=== PATIENT | male | born 1955 | race Caucasian/White ===

== ENCOUNTER 2020-04-10 12:42 | Inpatient (IN) | payer MEDICARE ==
[2020-04-10] MEDS ORDERED: SODIUM CHLORIDE 0.9% 1,000 ML IV STA (14:48)
--- NOTE | 2020-04-10 15:24 | ED ---
General Adult HPI - General Source: patient, RN notes reviewed, old records reviewed Mode of arrival: ambulatory Limitations: no limitations <Bahman Donohue - Last Filed: 04/10/20 17:24> <Kate Escobar - Last Filed: 04/14/20 02:18> - General Chief complaint: Recheck/Abnormal Lab/Rx Stated complaint: kidney problem Time Seen by Provider: 04/10/20 14:09 - History of Present Illness Initial comments: 65-year-old male patient with reportedly no past medical history presents to ED for evaluation of multiple complaints. Patient reports that at approximately 1 month ago he had a physical exam. He states that since then he noticed in the following days that he felt as if there is mucus in his throat and he is having difficulty swallowing. Patient presents onset he was been having difficulty passing nearly any food. He reports that he is still able to pass some liquids but that has been minimal as well. He states that he has been losing weight. He denies any areas of pain anywhere. He denies any symptoms significant with stroke. He states that he has been having a dry cough over that he believes his hand just trying to cough up what he believes is mucus in his throat causing discomfort. Patient follow up with his primary care provider for this a few days ago and had labs drawn. At that time patient was found to be in acute renal failure. Patient was recommended to present hospital. Systemic: Pt denies fatigue, fever/chills, rash. Pt denies weakness, night sweats, weight loss. Neuro: Pt denies headache, visual disturbances, syncope or pre-syncope. HEENT: Pt denies ocular discharge or irritation, otalgia, rhinorrhea, pharyngitis or notable lymphadenopathy. Cardiopulmonary: Pt denies chest pain, SOB, heart palpitations, dyspnea on exertion. Abdominal/GI: Pt denies abdominal pain, n/v/d. : Pt denies dysuria, burning w/ urination, frequency/urgency. Denies new onset urinary or bowel incontinence. MSK: Pt denies myalgia, loss of strength or function in extremities. Neuro: Pt denies new onset weakness, paresthesias. (Bahman Donohue) - Related Data Previous Rx's Medication Instructions Recorded Pantoprazole [Protonix] 40 mg PO AC-BID #60 tablet. 04/13/20 Allergies Allergy/AdvReac Type Severity Reaction Status Date / Time No Known Allergies Allergy Verified 04/10/20 14:47 Review of Systems ROS Other: All systems not noted in ROS Statement are negative. <Bahman Donohue - Last Filed: 04/10/20 17:24> ROS Other: All systems not noted in ROS Statement are negative. <Kate Escobar - Last Filed: 04/14/20 02:18> ROS Statement: Those systems with pertinent positive or pertinent negative responses have been documented in the HPI. Past Medical History Past Medical History: No Reported History History of Any Multi-Drug Resistant Organisms: None Reported Past Surgical History: No Surgical Hx Reported Past Psychological History: No Psychological Hx Reported Smoking Status: Never smoker Past Alcohol Use History: None Reported Past Drug Use History: None Reported <Bahman Donohue - Last Filed: 04/10/20 17:24> - Past Family History Mother Family Medical History: Congestive Heart Failure (CHF), Hypertension <Kate Escobar - Last Filed: 04/14/20 02:18> General Exam Limitations: no limitations <Bahman Donohue - Last Filed: 04/10/20 17:24> - General Exam Comments Initial Comments: Constitutional: NAD, AOX3, Pt has pleasant affect. HEENT: NC/AT, trachea midline, neck supple, no lymphadenopathy. Posterior pharynx non erythematous, without exudates. External ears appear normal, without discharge. Mucous membranes moist. Eyes PERRLA, EOM intact. There is no scleral icterus. No pallor noted. Cardiopulmonary: RRR, no murmurs, rubs or gallops, no JVD noted. Lungs CTAB in anterior and posterior hodges. No peripheral edema. Abdominal exam: Abdomen soft and non-distended. Abdomen non-tender to palpation in all 4 quadrants. Bowel sounds active in LLQ. No hepatosplenomegaly. No ecchymosis Neuro: CN II-XII intact. No nuchal rigidity. No raccon eyes, no osborne sign, no hemotympanum. No cervical spinal tenderness. MSK: No posterior calf tenderness bilaterally, homans sign negative bilaterally. Posterior tibialis and radial pulse +2 bilaterally. Sensation intact in upper and lower extremities. Full active ROM in upper and lower extremities, 5/5 stregnth. (Bahman Donohue) Course Vital Signs 04/10/20 04/10/20 04/10/20 13:24 16:01 19:07 Temperature 97.6 F 96.9 F L Pulse Rate 54 L 79 62 Pulse Rate [ Right] Respiratory 18 18 16 Rate Blood Pressure 114/72 126/58 107/51 Blood Pressure [Right Arm] O2 Sat by Pulse 95 99 100 Oximetry 04/10/20 04/11/20 04/11/20 23:46 05:04 11:00 Temperature 97.2 F L 98.7 F 97.6 F Pulse Rate 71 Pulse Rate [ 64 62 Right] Respiratory 18 19 18 Rate Blood Pressure 133/80 Blood Pressure 110/92 107/71 [Right Arm] O2 Sat by Pulse 100 95 100 Oximetry Medical Decision Making - Lab Data Result diagrams: 04/10/20 15:19 04/10/20 15:19 - EKG Data -: EKG Interpreted by Nd (and Dr. Escobar ) <Bahman Donohue - Last Filed: 04/10/20 17:24> - Lab Data Result diagrams: 04/10/20 15:19 04/13/20 06:30 <Kate Escobar - Last Filed: 04/14/20 02:18> - Medical Decision Making 65-year-old male patient with reportedly no past medical history presents to ED for evaluation of multiple complaints. Patient reports that at approximately 1 month ago he had a physical exam. He states that since then he noticed in the following days that he felt as if there is mucus in his throat and he is having difficulty swallowing. Patient presents onset he was been having difficulty p assing nearly any food. He reports that he is still able to pass some liquids but that has been minimal as well. He states that he has been losing weight. He denies any areas of pain anywhere. He denies any symptoms significant with stroke. He states that he has been having a dry cough over that he believes his hand just trying to cough up what he believes is mucus in his throat causing discomfort. Patient follow up with his primary care provider for this a few days ago and had labs drawn. At that time patient was found to be in acute renal failure. Patient was recommended to present hospital. Patient vital signs are stable, afebrile. Physical exam did not display acute pathology. Patient is neurologically intact. NIH is 0. Laboratory investigations are obtained. This was significant for a elevated BUN of 112, creatinine of 2.92. Calcium was 10.3, phosphorus is 4.8, magnesium is 3.3, bilirubin is mildly elevated. I believe the patient's renal failure is prerenal in nature. CT brain without contrast displayed mild to moderate cerebral atrophy no acute intracranial abnormality. Moderate chronic anterior right ethmoid and right frontal sinus disease. Soft tissue neck was negative for acute process. Chest x-ray displayed COPD, some subtle focal density at the left base could've some early infiltrate. She will be administered 1 dose of azithromycin. Patient adm inistered 2 L of normal saline will be written for further evaluation. Case discussed with Dr. Escobar. (Bahman Donohue) I was available for consultation in the emergency department. The history and physical exam were done by the midlevel provider. I was consulted for this patients care. I reviewed the case with the midlevel provider and based on their presentation of the patient, I agree with the assessment, medical decision making and plan of care as documented. I discussed the case with Dr. Nielson who accepted admission. Chart was dictated using [employer]ik[employer] dictation software. Attempts were made to correct any dictation errors however some typographical errors may persist. Patient was seen during a national state of emergency due to the Covid-19 pandemic. (Kate Escobar) - Lab Data Lab Results 04/10/20 04/10/20 04/10/20 Range/Units 15:19 15:19 15:19 WBC 5.0 (3.8-10.6) k/uL RBC 5.93 H (4.30-5.90) m/uL Hgb 16.5 (13.0-17.5) gm/dL Hct 50.3 (39.0-53.0) % MCV 84.9 (80.0-100.0) fL MCH 27.8 (25.0-35.0) pg MCHC 32.7 (31.0-37.0) g/dL RDW 13.3 (11.5-15.5) % Plt Count 207 (150-450) k/uL Neutrophils % 78 % Lymphocytes % 10 % Monocytes % 8 % Eosinophils % 1 % Basophils % 1 % Neutrophils # 3.9 (1.3-7.7) k/uL Lymphocytes # 0.5 L (1.0-4.8) k/uL Monocytes # 0.4 (0-1.0) k/uL Eosinophils # 0.1 (0-0.7) k/uL Basophils # 0.0 (0-0.2) k/uL Sodium 145 (137-145) mmol/L Potassium 3.9 (3.5-5.1) mmol/L Chloride 98 (98-107) mmol/L Carbon Dioxide 30 (22-30) mmol/L Anion Gap 17 mmol/L BUN 112 H* (9-20) mg/dL Creatinine 2.92 H (0.66-1.25) mg/dL Est GFR (CKD-EPI)AfAm 25 (>60 ml/min/1.73 sqM) Est GFR (CKD-EPI)NonAf 21 (>60 ml/min/1.73 sqM) Glucose 115 H (74-99) mg/dL Calcium 10.3 H (8.4-10.2) mg/dL Phosphorus 4.8 H (2.5-4.5) mg/dL Magnesium 3.3 H (1.6-2.3) mg/dL Total Bilirubin 1.8 H (0.2-1.3) mg/dL AST 29 (17-59) U/L ALT 24 (4-49) U/L Alkaline Phosphatase 63 (38-126) U/L Total Protein 8.4 H (6.3-8.2) g/dL Albumin 5.2 H (3.5-5.0) g/dL Urine Color Dark Yellow Urine Appearance Cloudy (Clear) Urine pH 5.0 (5.0-8.0) Ur Specific [place] 1.023 (1.001-1.035) Urine Protein 1+ H (Negative) Urine Glucose (UA) Negative (Negative) Urine Ketones 1+ H (Negative) Urine Blood Negative (Negative) Urine Nitrite Negative (Negative) Urine Bilirubin 1+ H (Negative) Urine Urobilinogen 4.0 (<2.0) mg/dL Ur Leukocyte Esterase Negative (Negative) Urine RBC 1 (0-5) /hpf Urine WBC 5 (0-5) /hpf Ur Squamous Epith Cells 1 (0-4) /hpf Urine Bacteria Rare H (None) /hpf Cellular Casts 3 (0) /lpf Hyaline Casts 106 H (0-2) /lpf Granular Casts 3 (0) /lpf Urine Mucus Rare H (None) /hpf - EKG Data EKG Comments: Ventricular rate 89, painful 128, QRS 74, QT/QTC 372/452. Normal sinus rhythm, right atrial enlargement, borderline EKG. (Bahman Donohue) Disposition Is patient prescribed a controlled substance at d/c from ED?: No <Bahman Donohue - Last Filed: 04/10/20 17:24> <Kate Escobar - Last Filed: 04/14/20 02:18> Clinical Impression: Acute renal failure, Dysphagia Disposition: ADMITTED IP TO THIS HOSP Condition: Serious
[2020-04-10 15:40] LABS: Appearance,Urine Cloudy (Clear); Bacteria,Urine Rare /hpf; Basophils % (A) 1 %; Bilirubin,Urine 1+ (Negative); Blood,Urine Negative (Negative); Color,Urine Dark Yellow; Eosinophils # (A) 0.1 k/uL (0-0.7); Eosinophils % (A) 1 %; Glucose,Urine (UA) Negative (Negative); HCT 50.3 % (39.0-53.0); HGB 16.5 gm/dL (13.0-17.5); Ketones,Urine 1+ (Negative); Leukocyte Esterase,Urine Negative (Negative); Lymphocytes # (A) 0.5 k/uL (1.0-4.8); Lymphocytes % (A) 10 %; MCH 27.8 pg (25.0-35.0); MCHC 32.7 g/dL (31.0-37.0); MCV 84.9 fL (80.0-100.0); Mean Platelet Volume 8.5; Monocytes # (A) 0.4 k/uL (0-1.0); Monocytes % (A) 8 %; Neutrophils # (A) 3.9 k/uL (1.3-7.7); Neutrophils % (A) 78 %; Nitrite,Urine Negative (Negative); Platelet Count 207 k/uL (150-450); Protein,Urine 1+ (Negative); RBC 5.93 m/uL (4.30-5.90); RBC,Urine 1 /hpf (0-5); RDW 13.3 % (11.5-15.5); Specific Gravity,Urine 1.023 (1.001-1.035); Squamous Epithelial Cell,Urine 1 /hpf (0-4); WBC,Urine 5 /hpf (0-5)
[2020-04-10 15:42] LABS: Cellular Casts,Urine 3 /lpf (0); Granular Casts,Urine 3 /lpf (0); Hyaline Casts,Urine 106 /lpf (0-2); Mucus,Urine Rare /hpf
[2020-04-10 15:52] LABS: Albumin 5.2 g/dL (3.5-5.0); Calcium 10.3 mg/dL (8.4-10.2); Magnesium 3.3 mg/dL (1.6-2.3); Phosphorus 4.8 mg/dL (2.5-4.5); Potassium 3.9 mmol/L (3.5-5.1); Total Bilirubin 1.8 mg/dL (0.2-1.3); Total Protein 8.4 g/dL (6.3-8.2)
--- NOTE | 2020-04-10 15:59 | CT ---
EXAMINATION TYPE: CT brain wo con DATE OF EXAM: 04/10/2020 COMPARISON: None HISTORY: 65-year-old male dysphagia, trouble swallowing, poor historian. TECHNIQUE: Examination was done in axial plane without intravenous contrast. Coronal and sagittal r econstructions performed. CT DLP: 1099.4 mGycm Automated exposure control for dose reduction was used. FINDINGS: There is no evidence of acute intracranial hemorrhage, acute ischemic changes, mass, mass-effect, or extra-axial fluid collection. There is no effacement of cerebral sulci or basal subarachnoid cister ns. There is no hydrocephalus. There is no midline shift. Olivas-white matter distinction is preserv ed. Moderate mucosal thickening anterior right ethmoid air cells and right frontal sinus. Mastoid air rodolfo ls well pneumatized. Orbits and globes appear intact. Mjhe-hj-eagqzikp atrophy along the bilateral cerebral convexities. IMPRESSION: Mild to moderate cerebral atrophy. No acute intracranial abnormality seen. Moderate chronic anterior right ethmoid and right frontal sinus disease.
--- NOTE | 2020-04-10 16:00 | XR ---
EXAMINATION TYPE: XR soft tissue neck DATE OF EXAM: 04/10/2020 COMPARISON: None HISTORY: 65-year-old male difficulty in breathing, shortness of breath, dysphagia TECHNIQUE: AP and lateral views FINDINGS: No abnormal subglottic airway narrowing. Normal shouldering is seen on the frontal view. Normal epigl ottis. No prevertebral soft tissue swelling. No abnormal narrowing of the nasopharyngeal or oropharyn geal airway. IMPRESSION: No evident airway compromise. No prevertebral soft tissue swelling.
--- NOTE | 2020-04-10 16:02 | XR ---
EXAMINATION TYPE: XR chest 2V DATE OF EXAM: 04/10/2020 COMPARISON: None HISTORY: 65-year-old male with cough TECHNIQUE: PA and lateral views FINDINGS: The cardiomediastinal silhouette, aorta, and pulmonary vasculature are within normal limits. Hyperinf lation with increased AP chest dimension. Subtle density at the left base. Unclear if this is superim position shadow/summation artifact. Otherwise, no other consolidation or pleural effusion. IMPRESSION: COPD. Some subtle focal density at the left base could represent an early infiltrate. Follow-up in 4- 6 weeks after any potential treatment to reassess.
[2020-04-10] MEDS ORDERED: SODIUM CHLORIDE 0.9% 1,000 ML IV ONE (16:39)
[2020-04-10] MEDS ORDERED: MAG HYDROX/AL HYDROX/SIMETH 30 ML, HYOSCYAMINE ELIXIR 10 ML, LIDOCAINE VISCOUS 2% 10 ML PO STA ×3 (17:09)
[2020-04-10] MEDS ORDERED: NALOXONE 0.4 MG/ML 1 ML VIAL IV PRN (17:24)
[2020-04-10] MEDS ORDERED: AZITHROMYCIN 500 MG in SODIUM CHLORIDE 0.9% 250 ML IVPB STA (17:27)
--- NOTE | 2020-04-11 08:27 | P.NPCON ---
History of Present Illness - Reason for Consult acute renal failure - History of Present Illness Reason for consultation: Acute kidney injury History of present illness: Patient is a 65-year-old male seen in consultation for acute kidney injury. Unclear as to what his basic renal function is. Patient denies any prior history of kidney disease. Creatinine on admission yesterday was 2.92. Patient presented to the hospital due to poor intake and weight loss. Patient states he's a difficult time swallowing. He feels there is mucus buildup and he's unable to get it out. He denies chest pain or shortness of breath. Patient states he's lost over 20 pounds in the last month. He admits to good urine output. No hematuria or dysuria. Denies vomiting or diarrhea. he denies regular use of nonsteroidals. hemodynamically stable. x-ray of the neck revealed no airway compromise. no acute changes noted on brain CT. he is currently not on any IV fluids. He did receive 2 L of normal saline in the ER yesterday. No abdominal pain. No dizziness or syncopal episodes. No fever or chills. Vital signs are stable. General: The patient appeared well nourished and normally developed. HEENT: Head exam is unremarkable. Neck is without jugular venous distension. LUNGS: Lungs are clear to auscultation and percussion. HEART: Rate and Rhythm are regular. First and second heart sounds normal. No murmurs, rubs or gallops. ABDOMEN: soft, nontender. EXTREMITITES: No clubbing, cyanosis, or edema. Past Medical History Past Medical History: Cancer Additional Past Medical History / Comment(s): skin cancer with removal History of Any Multi-Drug Resistant Organisms: None Reported Past Surgical History: No Surgical Hx Reported Past Anesthesia/Blood Transfusion Reactions: No Reported Reaction Past Psychological History: No Psychological Hx Reported Smoking Status: Never smoker Past Alcohol Use History: None Reported Past Drug Use History: None Reported - Past Family History Mother Family Medical History: Congestive Heart Failure (CHF), Hypertension Medications and Allergies Home Medications Medication Instructions Recorded Confirmed Type No Known Home Medications 04/10/20 04/10/20 History Allergies Allergy/AdvReac Type Severity Reaction Status Date / Time No Known Allergies Allergy Verified 04/10/20 14:47 Physical Exam Vitals: Vital Signs Temp Pulse Pulse Resp BP BP Pulse Ox 04/11/20 05:04 98.7 F 71 19 133/80 95 04/10/20 23:46 97.2 F L 64 18 110/92 100 04/10/20 19:07 62 16 107/51 100 04/10/20 16:01 96.9 F L 79 18 126/58 99 04/10/20 13:24 97.6 F 54 L 18 114/72 95 Intake and Output 04/10/20 04/11/20 04/11/20 22:59 06:59 14:59 Other: # Voids 1 Weight 63.503 kg Results - Lab Results Most recent lab results Calcium 10.3 mg/dL (8.4-10.2) H 04/10/20 15:19 Phosphorus 4.8 mg/dL (2.5-4.5) H 04/10/20 15:19 Magnesium 3.3 mg/dL (1.6-2.3) H 04/10/20 15:19 04/10/20 15:19 04/10/20 15:19 Assessment and Plan Plan: assessment: 1. Acute kidney injury versus chronic kidney disease. Unknown baseline renal function. Possibly prerenal from poor intake. Creatinine 2.92 on admission. He does have proteinuria on UA without any RBCs. Granular and cellular casts noted. Rule out GN. 2. Dysphagia with weight loss. GI consulted. 3. Mild hypercalcemia. Albumin is 5.2. Therefore corrected calcium is in the normal range. 4. Hyperphosphatemia secondary to acute kidney injury. Plan: Start normal saline at 75 mL an hour. Check labs today. Quantify proteinuria and check serologies. Check renal ultrasound. Continue to monitor renal function and urine output. Thank you for the consultation. I will continue to follow the patient with you during his hospital stay.
[2020-04-11] MEDS: SODIUM CHLORIDE 0.9% 1,000 ML IV SCH ×2 (09:34→21:06)
[2020-04-11 10:09] LABS: Albumin 4.6 g/dL (3.5-5.0); Potassium 3.8 mmol/L (3.5-5.1); Total Bilirubin 1.6 mg/dL (0.2-1.3); Total Protein 7.4 g/dL (6.3-8.2)
--- NOTE | 2020-04-11 10:12 | US ---
EXAMINATION TYPE: US kidneys/renal and bladder DATE OF EXAM: 04/11/2020 COMPARISON: NONE CLINICAL HISTORY: dianna. EXAM MEASUREMENTS: Right Kidney: 10.4 x 3.5 x 4.5 cm Left Kidney: 10.2 x 4.8 x 4.9 cm Right Kidney: echogenic foci with twinkle artifact, probable stone measuring 0.4 x 0.5 x 0.2cm Left Kidney: ?mild hydro Bladder: not fully distended When scanning right kidney adjacent liver is heterogeneously hyperechoic suggesting fatty infiltratio n. Possible 4 mm nonobstructing calculus upper pole right kidney. No hydronephrosis. Bladder poorly d istended. Possible bulging prostate. Left kidney shows mild pyelocaliectasis and increased cortical e chogenicity. IMPRESSION: Possible mild left-sided hydronephrosis may further workup with functional study.
--- NOTE | 2020-04-11 11:35 | CT ---
EXAMINATION TYPE: CT ChestAbdPelvis wo con DATE OF EXAM: 04/11/2020 COMPARISON: NONE HISTORY: Pain and abnormal Weight loss CT DLP: 360.4 mGycm. Automated Exposure Control for Dose Reduction was Utilized. TECHNIQUE: CT scan of the thorax, abdomen and pelvis is performed without oral or IV contrast. FINDINGS: LUNGS: The lungs are grossly clear, there is no concerning parenchymal mass or nodule identified. T here is no pleural effusion or pneumothorax seen. The tracheobronchial tree is patent. MEDIASTINUM: There are no definitive abnormal greater than 1 cm hilar or mediastinal lymph nodes. N o cardiomegaly pericardial effusion is seen. OTHER: Small degree of bilateral subareolar gynecomastia.. LIVER/GB: Occasional subcentimeter and roughly 1 cm low dense lesions throughout liver favor thin-wal led cysts. Depended density in gallbladder favors small stones and/or gallbladder sludge. PANCREAS: No significant abnormality is seen. SPLEEN: No significant abnormality is seen. ADRENALS: No significant abnormality is seen. KIDNEYS: Elongated single 5-6 mm calculus right kidney lower pole level image 51. BOWEL: Suboptimal evaluation without enteric contrast. No suspicious small or large bowel dilatation. Low-lying cecum into the right pelvis. Mild diffuse colonic fecal prominence. GENITAL ORGANS: Upper limits of normal size with some central calcifications. Occasional scattered pe lvic phleboliths. LYMPH NODES: No greater than 1cm abdominal or pelvic lymph nodes are appreciated. OSSEOUS STRUCTURES: Slight S-shaped scoliosis OTHER: No significant additional abnormality is seen. IMPRESSION: No obvious mass or adenopathy to suggest neoplasm on noncontrast study.
[2020-04-11] MEDS: PANTOPRAZOLE 40 MG/10 ML VIAL IVP SCH ×2 (14:04→20:28)
[2020-04-11 16:30] LABS: Appearance,Urine Clear (Clear); Bilirubin,Urine Negative (Negative); Blood,Urine Negative (Negative); Color,Urine Yellow; Glucose,Urine (UA) Negative (Negative); Ketones,Urine 2+ (Negative); Leukocyte Esterase,Urine Negative (Negative); Nitrite,Urine Negative (Negative); Protein,Urine Trace (Negative); Specific Gravity,Urine 1.021 (1.001-1.035)
[2020-04-11 16:41] LABS: Creatinine,Urine Random 131.6 mg/dL
[2020-04-11 18:07] LABS: Protein, Total 6.9 g/dL (6.2-8.2)
[2020-04-11 18:10] LABS: Hepatitis A Antibody IgM Non-Reactive (Non-Reactive); Hepatitis B Core IgM Non-Reactive (Non-Reactive); Hepatitis B Surface Antigen Non-Reactive (Non-Reactive); Hepatitis C IgG Antibody Non-Reactive (Non-Reactive)
--- NOTE | 2020-04-11 22:19 | HP ---
HISTORY AND PHYSICAL CHIEF COMPLAINT: Abnormal weight loss, malnutrition, general weakness and debility, difficulty swallowing and renal failure. HISTORY OF PRESENT ILLNESS: This is the first known admission for this 65-year-old white male. He has been in fairly good health and he has not been taking any medications. He came into the office a week or two ago with a significant weight loss of about 40 pounds in the last few months. He is a very poor historian. He is quite anxious. He described difficulty swallowing. It sounded as though this problem was episodic. He had no other symptoms, including nausea, vomiting, hematemesis, melena, hematochezia, jaundice, etc. He was started on evaluation and his blood work revealed that he was in acute renal failure. Determination was made that he should be in the hospital, undergo an urgent and thorough workup, both for his renal failure and dysphagia. REVIEW OF SYSTEMS: He has had no neurologic problems, no psychiatric issues, change in the vision or the hearing, cough, hemoptysis, shortness of breath, chest pain, heart disease, hypertension, murmurs, rheumatic fever, orthopnea, PND, abdominal pain, jaundice, renal failure, dysuria, frequency, urgency, nocturia, urinary tract infections, etc. There is no history of diabetes or symptoms thereof. Past medical history, family history, and personal and social histories reveal he has NO ALLERGIES. The only medication he has been on was a hydrocortisone cream for a rash. He does not smoke or drink. PHYSICAL EXAMINATION: BMI is 15.5 with a height of 5 feet 9-3/4 inches and a weight of 107 pounds. Respirations are 18, pulse 72, blood pressure 140/70. In general he appeared to be very poorly nourished. He was pale. Head, ears, eyes, nose, mouth and throat were normal. Neck veins were not distended. Chest is clear to auscultation. Cardiac exam demonstrates sinus rhythm and no murmurs or extra sounds. The abdomen is scaphoid, soft and nontender without any visceromegaly or masses. Bowel sounds are present. Extremities are normal. Neurologically he is intact. He is admitted to the hospital with the diagnoses: 1. Dysphagia. 2. Renal failure. 3. Abnormal weight loss. 4. Cachexia. 5. Anxiety. PLAN: 1. Bed rest. 2. IV fluids. 3. Nephrology consult. 4. GI consult. MMODL / IJN: [id number] /
--- NOTE | 2020-04-11 22:51 | PN ---
PROGRESS NOTE CHIEF COMPLAINT: Abnormal weight loss, renal failure, dysphagia and cachexia. HISTORY OF PRESENT ILLNESS: This gentleman has been stable overnight and studies will be started today. He still is complaining of a feeling of being unable to swallow in his throat. PHYSICAL EXAMINATION: Lymph nodes are not enlarged. Chest is clear. Cardiac exam is normal. Abdomen is soft, nontender. IMPRESSION: 1. Dysphagia. 2. Renal failure. 3. Cachexia. PLAN: Start workup today. He will be seen by GI and Nephrology. MMODL / IJN: [id number] /
--- NOTE | 2020-04-12 06:00 | P.CONS ---
History of Present Illness - Reason for Consult Consult date: 04/11/20 Esophageal dysphagia Requesting physician: Kali Nielson - Chief Complaint Difficulty swallowing - History of Present Illness 65-year-old male presenting to the hospital for evaluation of decreased oral intake, dehydration and esophageal dysphagia. The patient reports that he has had increasing esophageal dysphagia over the past month. Initially the patient had difficulty swallowing solids however this has progressed to liquids as well. The patient reports difficulty getting the food and liquid down into his stomach and episodes of regurgitation. The patient has had a loss over the past year reporting 8 pounds of weight loss in evaluation with his primary care physician 1 month ago. Since that time he has had an additional 20 pounds of weight loss. He denies any history of alcohol or tobacco abuse. No family history of esophageal cancer. No prior upper endoscopy reported. On presentation laboratory evaluation significant for WBC 5, hemoglobin 16.5, platelet count 207,000, total bilirubin 1.6, alkaline phosphatase 51, AST 32 and ALT 30. Review of Systems REVIEW OF SYSTEMS: CONSTITUTIONAL: Denies any fevers, chills, fatigue, but close to a 30 pound weight loss over the past year, with 20 pounds lost over the past month. CARDIOVASCULAR: Denies any chest pain, palpitations high or low blood pressures RESPIRATORY: Denies any shortness of breath, hemoptysis or cough. GENITOURINARY: No dysuria or hematuria. MUSCULOSKELETAL: No weakness reported. SKIN: Denies any new rashes or lesions, jaundice or pallor. PSYCHIATRIC: Denies any depression or anxiety. NEUROLOGY: Denies headache, denies any new focal deficits. EARS/NOSE/THROAT: No recent hearing change, congestion, nasal discharge or sore throat. EYES: No pain in eyes, discharge or change in vision. GASTROINTESTINAL: As per HPI. Past Medical History Past Medical History: Cancer Additional Past Medical History / Comment(s): skin cancer with removal History of Any Multi-Drug Resistant Organisms: None Reported Past Surgical History: No Surgical Hx Reported Past Anesthesia/Blood Transfusion Reactions: No Reported Reaction Past Psychological History: No Psychological Hx Reported Smoking Status: Never smoker Past Alcohol Use History: None Reported Past Drug Use History: None Reported - Past Family History Mother Family Medical History: Congestive Heart Failure (CHF), Hypertension Medications and Allergies Home Medications Medication Instructions Recorded Confirmed Type No Known Home Medications 04/10/20 04/10/20 History Allergies Allergy/AdvReac Type Severity Reaction Status Date / Time No Known Allergies Allergy Verified 04/10/20 14:47 Physical Exam Vitals: Vital Signs Temp Pulse Pulse Resp BP BP Pulse Ox 04/11/20 11:00 97.6 F 62 18 107/71 100 04/11/20 05:04 98.7 F 71 19 133/80 95 04/10/20 23:46 97.2 F L 64 18 110/92 100 04/10/20 19:07 62 16 107/51 100 04/10/20 16:01 96.9 F L 79 18 126/58 99 04/10/20 13:24 97.6 F 54 L 18 114/72 95 Intake and Output 04/10/20 04/11/20 04/11/20 22:59 06:59 14:59 Intake Total 200 Balance 200 Intake: Oral 200 Other: # Voids 1 Weight 63.503 kg On physical examination, patient appears comfortable in no apparent distress. HEAD: Normocephalic, atraumatic. EYES: No scleral icterus. No conjunctival injection. MOUTH: No lesions, tongue midline. NECK: Trachea midline, no gross abnormalities. CHEST: Clear to auscultation with no wheezing or rhonchi appreciated. HEART: Regular rate and rhythm. ABDOMEN: Soft, thin. Bowel sounds are positive. No organomegaly. No guarding or rigidity. EXTREMITIES: No pedal edema. SKIN: No rashes, no jaundice. NEUROLOGIC: Alert and oriented x3. No focal deficits. Results CBC & Chem 7: 04/10/20 15:19 04/11/20 08:33 Labs: Abnormal Lab Results - Last 24 Hours (Table) 04/10/20 04/10/20 04/10/20 Range/Units 15:19 15:19 15:19 RBC 5.93 H (4.30-5.90) m/uL Lymphocytes # 0.5 L (1.0-4.8) k/uL Sodium (137-145) mmol/L Carbon Dioxide (22-30) mmol/L BUN 112 H* (9-20) mg/dL Creatinine 2.92 H (0.66-1.25) mg/dL Glucose 115 H (74-99) mg/dL Calcium 10.3 H (8.4-10.2) mg/dL Phosphorus 4.8 H (2.5-4.5) mg/dL Magnesium 3.3 H (1.6-2.3) mg/dL Total Bilirubin 1.8 H (0.2-1.3) mg/dL Total Protein 8.4 H (6.3-8.2) g/dL Albumin 5.2 H (3.5-5.0) g/dL Urine Protein 1+ H (Negative) Urine Ketones 1+ H (Negative) Urine Bilirubin 1+ H (Negative) Urine Bacteria Rare H (None) /hpf Hyaline Casts 106 H (0-2) /lpf Urine Mucus Rare H (None) /hpf 04/11/20 Range/Units 08:33 RBC (4.30-5.90) m/uL Lymphocytes # (1.0-4.8) k/uL Sodium 151 H (137-145) mmol/L Carbon Dioxide 32 H (22-30) mmol/L BUN 81 H (9-20) mg/dL Creatinine 1.67 H (0.66-1.25) mg/dL Glucose (74-99) mg/dL Calcium (8.4-10.2) mg/dL Phosphorus (2.5-4.5) mg/dL Magnesium 3.0 H (1.6-2.3) mg/dL Total Bilirubin 1.6 H (0.2-1.3) mg/dL Total Protein (6.3-8.2) g/dL Albumin (3.5-5.0) g/dL Urine Protein (Negative) Urine Ketones (Negative) Urine Bilirubin (Negative) Urine Bacteria (None) /hpf Hyaline Casts (0-2) /lpf Urine Mucus (None) /hpf CT scan - abdomen: report reviewed (No obvious mass or adenopathy on computed tomography scan of chest, abdomen and pelvis.) Assessment and Plan (1) Dysphagia Narrative/Plan: 65-year-old male presenting to the hospital with progressive esophageal dysphagia. This is been occurring over approximately the last month with progressive symptoms of difficulty swallowing initially solids and now liquids. Patient has associated weight loss of 20 pounds over the last month and almost 30 pounds over the last year. Denies any history of alcohol abuse, tobacco abuse or family history of esophageal cancer. Computed tomography scan of the chest/abdomen/pelvis negative for any adenopathy or mass noted. Unclear etiology with differential including stricturing disease, esophageal cancer, motility disorder of the esophagus or other etiology. Current Visit: Yes Status: Acute Code(s): R13.10 - DYSPHAGIA, UNSPECIFIED SNOMED Code(s): 25783600 (2) Acute renal failure Current Visit: Yes Status: Acute Code(s): N17.9 - ACUTE KIDNEY FAILURE, UNSPECIFIED SNOMED Code(s): 22293631 Plan: Supportive care Nothing by mouth Plan for EGD tomorrow for further evaluation Computed tomography scan reviewed Further recommendations pending findings of EGD Thank you for allowing us to participate in the care of the patient we will continue to follow
[2020-04-12 06:14] VITALS: RESP 18
[2020-04-12 08:13] LABS: Calcium 8.8 mg/dL (8.4-10.2); Magnesium 2.3 mg/dL (1.6-2.3); Potassium 3.4 mmol/L (3.5-5.1)
[2020-04-12] MEDS: PANTOPRAZOLE 40 MG/10 ML VIAL IVP SCH ×2 (08:36→20:19)
[2020-04-12] MEDS ORDERED: POTASSIUM CHLORIDE ER 20 MEQ TAB.ER PO STA (09:02)
--- NOTE | 2020-04-12 09:03 | P.PN ---
Subjective Patient is seen in follow for acute kidney injury. Creatinine was 2.9 at admission and is down to 1.22 today. However her sodium level is elevated and is 150 this morning. He denies chest pain or shortness of breath. No edema. Scheduled for EGD today. Vital signs are stable. General: The patient appeared well nourished and normally developed. HEENT: Head exam is unremarkable. Neck is without jugular venous distension. LUNGS: Lungs are clear to auscultation and percussion. Breath sounds decreased. HEART: Rate and Rhythm are regular. ABDOMEN: soft, nontender. EXTREMITITES: No clubbing, cyanosis, or edema. Objective - Vital Signs Vital signs: Vital Signs Temp 97.6 F 04/12/20 05:00 Pulse 71 04/12/20 05:00 Resp 18 04/12/20 05:00 BP 100/60 04/12/20 05:00 Pulse Ox 97 04/12/20 05:00 Intake & Output 04/11/20 04/12/20 04/12/20 18:59 06:59 18:59 Intake Total 375 900 Balance 375 900 Intake: Intake, IV Titration 75 600 Amount Sodium Chloride 0.9% 1, 75 600 000 ml @ 75 mls/hr IV . [id number] [facility] Rx#:[id number] Oral 300 300 Other: Voiding Method Toilet # Voids 1 - Labs CBC & Chem 7: 04/10/20 15:19 04/12/20 07:51 Labs: Abnormal Lab Results - Last 24 Hours (Table) 04/11/20 04/11/20 04/11/20 Range/Units 08:33 16:20 16:20 Sodium 151 H (137-145) mmol/L Potassium (3.5-5.1) mmol/L Chloride (98-107) mmol/L Carbon Dioxide 32 H (22-30) mmol/L BUN 81 H (9-20) mg/dL Creatinine 1.67 H (0.66-1.25) mg/dL Glucose (74-99) mg/dL Magnesium 3.0 H (1.6-2.3) mg/dL Total Bilirubin 1.6 H (0.2-1.3) mg/dL Urine Protein Trace H (Negative) Urine Ketones 2+ H (Negative) U Random Total Protein 15 H (<12) mg/dL 04/12/20 Range/Units 07:51 Sodium 150 H (137-145) mmol/L Potassium 3.4 L (3.5-5.1) mmol/L Chloride 112 H (98-107) mmol/L Carbon Dioxide (22-30) mmol/L BUN 48 H (9-20) mg/dL Creatinine (0.66-1.25) mg/dL Glucose 72 L (74-99) mg/dL Magnesium (1.6-2.3) mg/dL Total Bilirubin (0.2-1.3) mg/dL Urine Protein (Negative) Urine Ketones (Negative) U Random Total Protein (<12) mg/dL Assessment and Plan Plan: assessment: 1. Acute kidney injury mostly prerenal due to poor oral intake. Creatinine 2.92 on admission and is down to 1.22 today. He does have proteinuria on UA without any RBCs. Granular and cellular casts noted. UPC 0.1. Serologies negative so far. no evidence of hydronephrosis noted on kidney ultrasound. 2. Dysphagia with weight loss. scheduled for EGD today. 3. Mild hypercalcemia. Albumin is 5.2. Therefore corrected calcium in the normal range. Better today. 4. Hyperphosphatemia secondary to acute kidney injury. Expect improvement with improved renal function. 5. Hypernatremia secondary to lack of oral water intake. 6. Hypokalemia from poor oral intake. Magnesium normal. Plan: Discontinue normal saline. Start D5W at 75 mL an hour. Replace potassium. 40 mEq today. Continue to monitor renal function and urine output. Follow-up serologies.
[2020-04-12] MEDS: DEXTROSE 5% IN WATER 1,000 ML IV SCH (10:00)
[2020-04-12 11:49] LABS: Complement C3 88.4 mg/dL (80.0-207.0)
[2020-04-12] MEDS ORDERED: PROPOFOL 10 MG/ML 20 ML VIAL IV ONE (12:16)
[2020-04-12] MEDS ORDERED: LIDOCAINE 1% INJ 10MG/ML (20 ML MDV) ONE (12:16)
[2020-04-12] MEDS ORDERED: IV FLUID CONTINUATION 1,000 ML IV ONE (12:19)
--- NOTE | 2020-04-12 12:29 | P.PCN ---
Date of Procedure: 04/12/20 Procedure(s) Performed: BRIEF HISTORY: Patient is a 65-year-old, pleasant, white male admitted hospital with progressive dysphagia to solids for the last 1 month duration and weight loss of 30 pounds. Hence scheduled for an upper endoscopy to evaluate. PROCEDURE PERFORMED: Esophagoscopy with dilation. PREOPERATIVE DIAGNOSIS: Progressive dysphagia to solids and weight loss of 6 months duration. IV sedation per anesthesia. PROCEDURE: After informed consent was obtained, the patient was brought into the endoscopy unit. IV sedation was administered by Anesthesia under continuous monitoring. Initially the Olympus GIF-140 video endoscope was inserted into the mouth. Esophagus intubated without any difficulty. It was gradually advanced into the distal esophagus and there was a tight benign appearing stricture noted at 28 cm from the incisors. The luminal diameter of the stricture was about 3-5 mm. I disseminated proceeded with balloon dilation as a family advanced to the stricture. This was dilated with 18 mm for 20 seconds and then to 19 mm for 20 was seconds. At this time there was brisk oozing identified at the site of dilation and hence further dilation was not performed. After the dilation was still one not able to advance the scope into the stomach. The esophagus appeared slightly dilated proximal to the stricture. The rest of the esophagus appeared normal. There were no erosions or ulcerations seen and the patient tolerated the procedure well. IMPRESSION: 1. Tight distal esophageal stricture status post balloon dilation using 8 and 9 mm TTS balloon as described above. 2. Scope could not be advanced through the stricture into the stomach. RECOMMENDATIONS: The findings of this examination were discussed with the patient . He'll be started on a clear liquid diet today and advance as tolerated tomorrow.. He needs to have a repeat upper endoscopy with dilation in one to 2 weeks.
--- NOTE | 2020-04-12 12:50 | PN ---
PROGRESS NOTE DATE OF SERVICE: 04/12/2020. CHIEF COMPLAINT: Intermittent dysphagia and abdominal pain with renal failure, weight loss. HISTORY OF PRESENT ILLNESS: This gentleman is feeling fairly well but is going down for endoscopy today. He states that sometimes he can swallow and other times he cannot. Renal function is improving and was probably related to dehydration or prerenal azotemia. PHYSICAL EXAMINATION: Seems awake and alert. He remains slightly pale. Nutrition is poor. Chest is clear. Cardiac exam is normal. Abdomen is flat, soft, nontender. IMPRESSION: 1. Dysphagia. 2. Renal failure. 3. Malnutrition. PLAN: Await results of endoscopy as well as the CT scan. MMODL / IJN: [id number] /
[2020-04-12 13:05] LABS: Gamma Globulin 1.11 g/dL (0.70-1.50)
[2020-04-12 14:41] LABS: C-ANCA <1:20 Titer (<1:20)
[2020-04-13] MEDS: DEXTROSE 5% IN WATER 1,000 ML IV SCH ×2 (03:43→08:24)
[2020-04-13 07:30] LABS: Calcium 8.2 mg/dL (8.4-10.2); Magnesium 1.6 mg/dL (1.6-2.3); Potassium 3.6 mmol/L (3.5-5.1)
[2020-04-13 07:34] VITALS: BP 93/44; PULSE 55; TEMP 98.2
[2020-04-13] MEDS ORDERED: POTASSIUM CHLORIDE ER 20 MEQ TAB.ER PO STA (08:19)
[2020-04-13] MEDS ORDERED: LACTATED RINGERS 1,000 ML IV SCH (08:19)
[2020-04-13] MEDS ORDERED: LIDOCAINE 1% (10MG/ML) FOR IV START INTRADERMA PRN (08:19)
[2020-04-13] MEDS: PANTOPRAZOLE 40 MG/10 ML VIAL IVP SCH (08:24)
[2020-04-13] MEDS ORDERED: Phosphorus Replacement Protoco 1 EACH MISC MISCELLANE PRN (09:09)
--- NOTE | 2020-04-13 09:10 | P.PN ---
Subjective Patient is seen in follow for acute kidney injury. Creatinine was 2.9 at admission and is down to 1.05 today. Sodium level is better. Underwent es ophagoscopy with dilation on April 12. Oral intake improving. Vital signs are stable. General: The patient appeared well nourished and normally developed. HEENT: Head exam is unremarkable. Neck is without jugular venous distension. LUNGS: Lungs are clear to auscultation and percussion. Breath sounds decreased. HEART: Rate and Rhythm are regular. ABDOMEN: soft, nontender. EXTREMITITES: No clubbing, cyanosis, or edema. Objective - Vital Signs Vital signs: Vital Signs Temp 98.2 F 04/13/20 05:00 Pulse 55 L 04/13/20 05:00 Resp 18 04/13/20 05:00 BP 93/44 04/13/20 05:00 Pulse Ox 98 04/13/20 05:00 Intake & Output 04/12/20 04/13/20 04/13/20 18:59 06:59 18:59 Intake Total 450 Balance 450 Intake: IV 50 Oral 400 Other: Voiding Method Toilet Toilet # Voids 2 1 - Labs CBC & Chem 7: 04/10/20 15:19 04/13/20 06:30 Labs: Abnormal Lab Results - Last 24 Hours (Table) 04/13/20 Range/Units 06:30 Carbon Dioxide 32 H (22-30) mmol/L BUN 27 H (9-20) mg/dL Calcium 8.2 L (8.4-10.2) mg/dL Phosphorus 2.0 L (2.5-4.5) mg/dL Assessment and Plan Plan: assessment: 1. Acute kidney injury mostly prerenal due to poor oral intake. Creatinine 2.92 on admission and is down to 1.05 today. He did have proteinuria on UA without any RBCs. UPC 0.1. Serologies negative. No evidence of hydronephrosis noted on kidney ultrasound. 2. Dysphagia with weight loss. Status post esophagoscopy with dilation in April 12. 3. Mild hypercalcemia. Albumin is 5.2. Therefore corrected calcium in the normal range. resolved. 4. Hyperphosphatemia secondary to acute kidney injury. Resolved. Phosphorus on the lower side today. 5. Hypernatremia secondary to lack of oral water intake. Resolved. 6. Hypokalemia from poor oral intake. Magnesium normal. Plan: Stop D5W. Start normal saline at 50 mL an hour. Potassium was replaced. Replace phosphorus per protocol. Continue to monitor renal function and urine output.
[2020-04-13] MEDS ORDERED: SODIUM CHLORIDE 0.9% 1,000 ML IV SCH (09:15)
[2020-04-13] MEDS ORDERED: POTASSIUM PHOSPHATE 10 MMOL in SODIUM CHLORIDE 0.9% 250 ML IV SCH (13:00)
[2020-04-13] MEDS ORDERED: POTAS-SOD-PHOS 278-164-250 MG 1 EACH PACKET PO STA (13:27)
--- NOTE | 2020-04-13 13:50 | PN ---
PROGRESS NOTE DATE OF SERVICE: 04/13/2020 The patient is a 65-year-old white male admitted to hospital with severe progressive dysphagia and weight loss of several months duration. He had an upper endoscopy done yesterday that showed a benign tight distal esophageal stricture with a luminal diameter of 5 mm in diameter. He underwent dilation yesterday. He is on a clear liquid diet, tolerating well. He denies any symptoms. EXAMINATION: Appears comfortable. Vital signs are stable. Blood pressure is 106/44, pulse 55, temperature 98.2. HEENT examination unremarkable. Conjunctivae pink, sclerae anicteric. Oral cavity no lesions. NECK: No JVD or lymph node enlargement. CHEST was clear auscultation. HEART: Regular rate and rhythm. ABDOMEN: Soft. Bowel sounds are positive. No organomegaly. EXTREMITIES: No pedal edema. SKIN: No rashes. NEUROLOGIC: Alert and oriented x3. No focal deficits. LABS: No CBC done, but BUN and creatinine are down to 27 and 1.05 respectively. IMPRESSION: 1. Severe progressive dysphagia secondary to tight distal esophageal benign appearing stricture status post EGD with dilation yesterday, on a clear liquid diet, tolerating well. Most likely the etiology of the stricture is related to gastroesophageal reflux disease. 2. Progressive weight loss. 3. Acute kidney injury secondary to decreased oral intake which is improving. RECOMMENDATION: 1. Advance to soft diet today. 2. Protonix 40 mg daily. 3. Repeat upper endoscopy with dilation in 2 weeks from now. I had a lengthy discussion with the patient regarding management of benign tight distal esophageal stricture for which he may need periodic dilations in the near future. He will be seen in the office in 2 weeks. Thank you for this consultation. MMODL / IJN: [id number] /
[2020-04-13] MEDS ORDERED: PANTOPRAZOLE 40 MG TABLET PO SCH (17:30)
--- NOTE | 2020-04-14 00:20 | DS ---
DISCHARGE SUMMARY CHIEF COMPLAINT: Dysphagia, malnutrition, anorexia, and renal failure. HISTORY OF PRESENT ILLNESS AND PHYSICAL EXAM: Details of this man's history and physical can be found in the initial workup. LABORATORY STUDIES: While he was in the hospital, he had laboratory studies, details of which can be found laboratory section of his chart. COURSE IN THE HOSPITAL: After admission, he was placed on bedrest, started on intravenous fluids and began on workup. When he was rehydrated, his renal function returned to near normal. He was taken for endoscopy where he was found to have a significant stricture in the distal esophagus. This was dilated. After that, he could swallow much more easily. He was doing well and it was felt he could go home on the and he will go home on Protonix 40 mg twice a day. He will follow up in the office in a few days. He will also go back to Gastroenterology in 2 weeks for another dilatation. FINAL DIAGNOSES: 1. Distal esophageal stenosis. 2. Malnutrition. 3. Dehydration. 4. Prerenal azotemia. OPERATIONS: Upper GI endoscopy and dilatation of the esophagus. CONSULTATION: Gastroenterology. Nephrology. He is improved. MMODL / IJN: [id number] /
--- NOTE | 2020-04-16 09:23 | CDI ---
Documentation Clarification Form Date: 04/16/2020 08:06:00 AM From: Daja Barber Phone: If you have a question about this query, please contact Justyna Bran Complaint Manager at [phone] between 8am and 5pm Admit Date: 04/10/2020 05:25:00 PM Patient Name: David Beltran Visit Number: [id number] Discharge Date: 04/13/2020 04:37:00 PM TTENTION: The Clinical Documentation Specialists (CDI) and [facility] Coding Staff appreciate your assistance in clarifying documentation. Please respond to the clarification below the line at the bottom and electronically sign. The CDI & [facility] Coding staff will review the response and follow-up if needed. Please note: Queries are made part of the Legal Health Record. If you have any questions, please contact the author of this message via ITS. Dr. Kali Nielson Malnutrition has been documented throughout the chart and not specified to severity. Patient has lost 20 lbs over the last month and 30 lbs over the last year due to decreased oral intake from dysphagia caused from esophageal stenosis. Please clarify the severity of patient's malnurtiion. History/Risk Factors: esophageal stricture. 20 lb weight loss in las month Clinical Indicators: Labs: BUN 112 Creat. 2.92 from dehydration Current BMI: 20.7 Weight Loss: 20 lbs last month 30 lbs. last year Treatment: dilate distal esophagus via EGD Weight and meals monitored. I and O's In your professional opinion, can you please clarify if these findings signify one of the following conditions? Mild Protein-Calorie Malnutrition ?Moderate Protein-Calorie Malnutrition ?Severe Protein-Calorie Malnutrition ?Malnutrition, unspecified ?Malnutrition following GI surgery ?Other condition, please specify ?Unable to determine MTDD
--- NOTE | 2020-04-16 15:04 | MISC ---
MISCELLANOUS REPORT QUERY RESPONSE: Severe protein calorie malnutrition. MMODL / IJN: [id number] /
== END 2020-04-13 16:37 | disposition home or self-care (01) | DRG 682 ==
LOC: EC 12:42 → 4SSUR 17:25 → 5NMEDONC 04-11 12:42
PROVIDERS: ADMIT Family Medicine; ATTEND Family Medicine
PROC: 0D738ZZ Dilation of Lower Esophagus, Via Natural or Artificial Opening Endoscopic (ICD-10-PCS; principal; 2020-04-12 13:35)
DX: N17.9 Acute kidney failure, unspecified (principal); E43 Unspecified severe protein-calorie malnutrition; E87.0 Hyperosmolality and hypernatremia; K22.2 Esophageal obstruction; E83.39 Other disorders of phosphorus metabolism; E83.52 Hypercalcemia; E86.0 Dehydration; Z68.20 Body mass index [BMI] 20.0-20.9, adult; R63.4 Abnormal weight loss; E87.6 Hypokalemia; J44.9 Chronic obstructive pulmonary disease, unspecified; K21.9 Gastro-esophageal reflux disease without esophagitis; R13.14 Dysphagia, pharyngoesophageal phase; Z82.49 Family history of ischemic heart disease and other diseases of the circulatory system; Z85.828 Personal history of other malignant neoplasm of skin; Z11.59 Encounter for screening for other viral diseases
CPT/HCPCS: 36415; 43249; 70360; 70450; 71046; 71250; 74176; 76770; 80048; 80053; 80074; 81001; 81003; 82570; 83735; 84100; 84156; 84165; 85025; 86038; 86160; 86162; 86255; 86334; 86335; 93005; 96361; 96365; 96366; 96375; 99285

== ENCOUNTER 2023-06-12 17:51 | Emergency (ER) | payer MEDICARE ==
[2023-06-12 18:05] VITALS: RESP 16
[2023-06-12] MEDS ORDERED: HYDROmorphone 0.5 MG/0.5 ML SYRINGE IM STA (18:17)
[2023-06-12] MEDS ORDERED: MORPHINE SULFATE 4 MG/ML SYRINGE IM STA (18:18)
--- NOTE | 2023-06-12 19:25 | CT ---
EXAMINATION TYPE: CT brain cspine wo con DATE OF EXAM: 06/12/2023 COMPARISON: Brain 04/10/2020 HISTORY: 68-year-old male pain after fall on face, abrasions to nose CT DLP: combined 1170.4 mGycm Automated exposure control for dose reduction was used. Technique: Examination of the head was done in axial plane without intravenous contrast. Coronal and sagittal reconstructions performed. CT of the cervical spine was obtained in axial plane without intravenous injection of contrast mater ial. Coronal and sagittal reformatted images were obtained from the axial views for evaluation of f ractures, spinal alignment and canal. FINDINGS: Head: There is no evidence of acute intracranial hemorrhage, acute ischemic changes, mass, mass-effect, or extra-axial fluid collection. There is no effacement of cerebral sulci or basal subarachnoid cister ns. There is no hydrocephalus. There is no midline shift. Olivas-white matter distinction is preserv ed. Mild cerebral cortical volume loss. No calvarial fracture. Mastoid air cells are well pneumatized. Facial bones reported separately. Cervical spine: No craniocervical junction abnormality, predental space widening, or prevertebral soft tissue swellin g. Degenerative change of the C1 dens articulation. Moderate degenerative disc disease C6-C7 with disc space narrowing and disc osteophyte complex mildly narrowing the spinal canal. No acute fracture of the cervical spine. Scattered facet and uncovertebral joint arthropathy. Alignment is maintained. There is moderate right neuroforaminal stenosis at C6-C7. Mild elsewhere throughout the cervical spin e. Mild biapical pleural-parenchymal scarring. Sagittal and coronal reformatted images confirm above findings. COMBINED IMPRESSION: 1. No acute intracranial abnormality seen. 2. No acute fracture or malalignment of the cervical spine. Mild to moderate spondylotic change as ou tlined above. 3. Facial bones reported separately.
--- NOTE | 2023-06-12 19:28 | CT ---
EXAMINATION TYPE: CT facial bones wo con DATE OF EXAM: 06/12/2023 COMPARISON: Prior CT brain 04/10/2020 HISTORY: 68-year-old male pain after fall on face, abrasions to nose TECHNIQUE: Contiguous axial scanning of the facial bones without IV contrast. Coronal and sagittal re constructions performed. CT DLP: combined 1170.4 mGycm Automated exposure control for dose reduction was used. FINDINGS: The mandible and TMJs remain intact. Pterygoid plates and zygomatic arches are intact. Moderate to severe mucosal thickening right frontal sinus and anterior ethmoid air cells. There is soft tissue swelling overlying the nose. There are comminuted and segmentally angulated bila teral nasal bone fractures. There is also depression of the left nasal bone by 2 mm. Rightward nasal septal deviation was present previously. Orbits and globes appear intact. No additional facial bone fracture seen. IMPRESSION: 1. SOFT TISSUE SWELLING OVERLYING THE NOSE WITH MARKEDLY COMMINUTED AND SEGMENTALLY ANGULATED BILATER AL NASAL BONE FRACTURES. ADDITIONAL DEPRESSION OF THE LATERAL LEFT NASAL BONE BY 2 MM. 2. 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
[2023-06-12] MEDS ORDERED: AMOXIC-POT CLAV 875-125MG 1 EACH TAB PO STA (19:43)
--- NOTE | 2023-06-12 19:48 | ED ---
Fall HPI - General Chief Complaint: Fall Stated Complaint: FELL ON FACE Time Seen by Provider: 06/12/23 18:13 Source: patient Mode of arrival: ambulatory - History of Present Illness Initial Comments: Patient is a 68-year-old male who presents to the emergency department for fall. Patient tripped on his rug at home and landed on his face. Patient reporting nose pain with swelling and abrasion to nose. He denies loss of consciousness a blood thinner use. Denies headache, nausea, vomiting. - Related Data Previous Rx's Medication Instructions Recorded Pantoprazole [Protonix] 40 mg PO AC-BID #60 tablet. 04/13/20 Acetaminophen Tab [Tylenol Tab] 500 mg PO Q4H #30 tablet 06/12/23 Amoxic-Pot Clav 875-125Mg 1 tab PO BID #20 tab 06/12/23 [Augmentin 875-125] Ibuprofen [Motrin] 600 mg PO Q6HR PRN #20 tab 06/12/23 Allergies Allergy/AdvReac Type Severity Reaction Status Date / Time No Known Allergies Allergy Verified 06/12/23 18:05 Review of Systems ROS Statement: Those systems with pertinent positive or pertinent negative responses have been documented in the HPI. ROS Other: All systems not noted in ROS Statement are negative. Past Medical History Past Medical History: Cancer Additional Past Medical History / Comment(s): skin cancer with removal History of Any Multi-Drug Resistant Organisms: None Reported Past Surgical History: No Surgical Hx Reported Past Anesthesia/Blood Transfusion Reactions: No Reported Reaction Past Psychological History: No Psychological Hx Reported Past Alcohol Use History: None Reported Past Drug Use History: None Reported - Past Family History Mother Family Medical History: Congestive Heart Failure (CHF), Hypertension General Exam Limitations: no limitations General appearance: alert Head exam: Present: other (Abrasion bridge of nose with swelling. No epistaxis) Eye exam: Present: normal appearance, PERRL, EOMI. Absent: scleral icterus, conjunctival injection, periorbital swelling Neck exam: Present: normal inspection, full ROM. Absent: tenderness, m eningismus, lymphadenopathy Respiratory exam: Present: normal lung sounds bilaterally. Absent: respiratory distress, wheezes, rales, rhonchi, stridor Cardiovascular Exam: Present: regular rate, normal rhythm, normal heart sounds. Absent: systolic murmur, diastolic murmur, rubs, gallop, clicks Neurological exam: Present: alert Expanded Sensory exam: Upper Extremity Light Touch: Normal, Lower Extremity Light Touch: Normal Motor strength exam: RUE: 5, LUE: 5, RLE: 5, LLE: 5 Psychiatric exam: Present: normal affect, normal mood Skin exam: Present: warm, dry, intact, normal color. Absent: rash Course Vital Signs 06/12/23 06/12/23 18:03 20:01 Temperature 97.7 F 98 F Pulse Rate 85 83 Respiratory 16 16 Rate Blood Pressure 152/86 158/97 O2 Sat by Pulse 98 99 Oximetry Medical Decision Making - Medical Decision Making Was pt. sent in by a medical professional or institution (, PA, ASSISTANT PROFESSOR OF ENGLISH, urgent care, hospital, or usp...) When possible be specific @ -No Did you speak to anyone other than the patient for history (EMS, parent, family, police, friend...)? What history was obtained from this source @ -No Did you review nursing and triage notes (agree or disagree)? Why? @ -I reviewed and agree with nursing and triage notes Were old charts reviewed (outside hosp., previous admission, EMS record, old EKG, old radiological studies, urgent care reports/EKG's, usp records)? Report findings @ -No old charts were reviewed Differential Diagnosis (chest pain, altered mental status, abdominal pain women, abdominal pain men, vaginal bleeding, weakness, fever, dyspnea, syncope, headache, dizziness, GI bleed, back pain, seizure, CVA, palpatations, mental health)? @ -Nose fracture, facial fracture, contusion EKG interpreted by me (3pts min.). @ -As above X-rays interpreted by me (1pt min.). @ -None done CT interpreted by me (1pt min.). @ -No acute intracranial process. No acute osseous abnormality of the cervical spine. Soft tissue swelling overlying the nose with markedly comminuted and segmentally angulated bilateral nasal bone fractures. Additional depression of the lateral left nasal bone by 2 mm. Severe chronic right frontal and anterior ethmoid sinus disease U/S interpreted by me (1pt. min.). @ -None done What testing was considered but not performed or refused? (CT, X-rays, U/S, labs)? Why? @ -None What meds were considered but not given or refused? Why? @ -None Did you discuss the management of the patient with other professionals (professionals i.e. , PA, ASSISTANT PROFESSOR OF ENGLISH, lab, RT, psych nurse, child protective services social worker, compression molding machine tender, teacher, optics technical officer, case management specialist)? Give summary @ -No Was smoking cessation discussed for >3mins.? @ -No Was critical care preformed (if so, how long)? @ -No] Were there social determinants of health that impacted care today? How? (Homelessness, low income, unemployed, alcoholism, drug addiction, transportation, low edu. Level, literacy, decrease access to med. care, senior living, rehab)? @ -[No] Was there de-escalation of care discussed even if they declined (Discuss DNR or withdrawal of care, Hospice)? DNR status @ -[No] What co-morbidities impacted this encounter? (DM, HTN, Smoking, COPD, CAD, Cancer, CVA, ARF, Chemo, Hep., AIDS, mental health diagnosis, sleep apnea, morbid obesity)? @ -[None] Was patient admitted / discharged? Hospital course, mention meds given and route, prescriptions, significant lab abnormalities, going to OR and other pertinent info. @ Patient presenting with nose pain after fall. No obvious deformity of the nose. No epistaxis. The nasal bridge is very swollen with abrasion. No laceration. CT of the brain and C-spine obtain an timber hewer by myself showing no acute cranial process, no acute osseous abnormality the cervical spine. There is soft tissue swelling overlying the nose with markedly comminuted and segmentally angulated bilateral nasal bone fractures. Additional depression of the lateral left mandible by 2 mm. There is also severe chronic right frontal and anterior ethmoid sinus disease Pain controlled. Patient stable medical condition for discharge. He will follow up with ENT specialist. He is placed on Augmentin. We discussed fracture care in detail. Undiagnosed new problem with uncertain prognosis? @ -[No] Drug Therapy requiring intensive monitoring for toxicity (Heparin, Nitro, Insulin, Cardizem)? @ -[No] Were any procedures done? @ -[No] Diagnosis/symptom? @ -Fall, nose fracture Acute, or Chronic, or Acute on Chronic? @ -Acute Uncomplicated (without systemic symptoms) or Complicated (systemic symptoms)? @ Uncomplicated Side effects of treatment? @ -[No] Exacerbation, Progression, or Severe Exacerbation? @ -[No] Poses a threat to life or bodily function? How? (Chest pain, USA, MD, pneumonia, PE, COPD, DKA, ARF, appy, cholecystitis, CVA, Diverticulitis, Homicidal, Suicidal, threat to staff... and all critical care pts) @ -[No] Dr. Marvin is my attending Disposition Clinical Impression: Fall, Nose fracture Disposition: HOME SELF-CARE Condition: Good Instructions (If sedation given, give patient instructions): Nasal Fracture (ED), Fall Prevention for Older Adults (ED) Additional Instructions: Ice injury. Alternate Tylenol and Motrin every 3-4 hours for pain. Follow up with ENT specialist in 1-2 days. Return to the emergency department if you experience new, concerning, or worsening symptoms Prescriptions: Amoxic-Pot Clav 875-125Mg [Augmentin 875-125] 1 tab PO BID #20 tab Ibuprofen [Motrin] 600 mg PO Q6HR PRN #20 tab PRN Reason: Pain Acetaminophen Tab [Tylenol Tab] 500 mg PO Q4H #30 tablet Is patient prescribed a controlled substance at d/c from ED?: No Referrals: None,Stated [REFERRING] - 1-2 days
[2023-06-12 20:17] VITALS: BP 158/97; PULSE 83; TEMP 98
== END 2023-06-12 20:04 | disposition home or self-care (01) ==
LOC: EC 17:51
DX: S02.2XXA Fracture of nasal bones, initial encounter for closed fracture (principal); M50.323 Other cervical disc degeneration at C6-C7 level; M48.02 Spinal stenosis, cervical region; M47.812 Spondylosis without myelopathy or radiculopathy, cervical region; W01.0XXA Fall on same level from slipping, tripping and stumbling without subsequent striking against object, initial encounter
CPT/HCPCS: 72125; 70486; 70450; 99284; 96372; J2270